=== PATIENT | male | born 1960 | race Caucasian/White ===

== ENCOUNTER 2017-06-19 08:12 | Day surgery (SDC) | payer MEDICAID ==
[2017-06-19] VITALS (7 sets, daily range): BP systolic 108–140; BP diastolic 7–94; PULSE 60–96; RESP 16–20; TEMP 97.8; O2SAT 93–98
[~2017-06-19] VITALS: Ht 167.6 cm; Wt 75.0 kg
[2017-06-19] MEDS ORDERED: SPIR50TA PO (08:54)
[2017-06-19] MEDS ORDERED: PROP40TA3 PO (08:54)
[2017-06-19] MEDS ORDERED: AMLO10TA2 PO (08:54)
[2017-06-19] MEDS ORDERED: XIFA550T4 PO (08:54)
[2017-06-19 10:20] LABS: INTERNATIONAL NORMALIZED RATIO 1.5 RATIO; PROTHROMBIN TIME - PATIENT 15.3 SEC (9.8-11.6)
[2017-06-19] MEDS ORDERED: LORazepam 2 MG/ML VIAL ONE (10:53)
--- NOTE | 2017-06-19 11:52 | RADRPT ---
EXAM DATE/TIME: 06/19/2017 11:12 [place] COMPARISON: No previous studies available for comparison. INDICATIONS : Hepatits C. SEDATION TIME: 30 minutes BIOPSY SITE: Right MEDICATION(S): 1.) 2 mg lorazepam (Ativan) IV 2.) 100 mcg fentanyl (Sublimaze) IV DEVICE(S): 1.) 16 gauge Temno core biopsy needle MEDICAL HISTORY : Hepatitis C. SURGICAL HISTORY : None. ENCOUNTER: Initial ACUITY: 1 day PAIN SCORE: 0/10 LOCATION: Right A total of one core specimen(s) were obtained and sent to the laboratory for pathologic evaluation. PROCEDURE: 1. CT guided liver biopsy. 2. Conscious sedation with continuous EKG and oximetry monitoring. 3. EKG and oximetry remained stable throughout the procedure. Prior to the procedure informed consent was obtained. Any appropriate prior imaging studies were rev iewed. Using automated exposure control and adjustment of the mA and/or kV according to patient size, radiat ion dose was kept as low as reasonably achievable to obtain optimal diagnostic quality images. DICOM format image data is available electronically for review and comparison. The site was prepped in a sterile fashion. Full sterile technique was used, including cap, mask, jim rile gloves and gown and a large sterile sheet. Hand hygiene and 2% chlorhexidine and/or betadine/al cohol prep was utilized per protocol for cutaneous antisepsis. The skin and subcutaneous tissues wer e infiltrated with local anesthetic solution. With CT guidance the previously identified target was localized. Biopsy was performed using the presc ribed needle as above. Adequate hemostasis was obtained with compression at the puncture site. Follow-up CT scan reveals no hemorrhage. The patient tolerated the procedure well and there were no complications. The patient was returned to the Radiology Outpatient Unit in stable condition. CONCLUSION: Uncomplicated CT guided biopsy. Leonides Song MD on June 19, 2017 at 11:49 Board Certified Radiologist. This report was verified electronically.
[2017-06-19] MEDS ORDERED: PILL SPLITTER OTHER PRN (14:45)
[2017-06-19] MEDS ORDERED: HYDROmorphone HCL 2 MG TAB PO PRN (14:45)
== END 2017-06-19 16:15 | disposition home or self-care (01) ==
LOC: HRAD 08:12 → HRIP 08:15 → HRAD 16:15
PROVIDERS: ATTEND Specialist
DX: B18.2 Chronic viral hepatitis C (principal); K74.60 Unspecified cirrhosis of liver; I10 Essential (primary) hypertension
CPT/HCPCS: 47000; 77012; 85610; 85730; 88307; 88313; J2060; J3010